=== PATIENT | female | born 1985 | race American Indian/Alaskan Native ===

== ENCOUNTER 2017-05-19 20:08 | Emergency (ER) | payer SELFPAY ==
[2017-05-20] MEDS ORDERED: MOTRIN PO ONE (00:52)
[2017-05-20] MEDS ORDERED: FLEXERIL PO ONE (00:52)
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
[2017-05-20 05:56] VITALS: BP 118/76
== END 2017-05-20 01:59 | disposition home or self-care (01) ==
LOC: ED 20:08
DX: S13.4XXA Sprain of ligaments of cervical spine, initial encounter (principal); F17.200 Nicotine dependence, unspecified, uncomplicated; Z88.8 Allergy status to other drugs, medicaments and biological substances; V89.2XXA Person injured in unspecified motor-vehicle accident, traffic, initial encounter; Y93.89 Activity, other specified; Y92.89 Other specified places as the place of occurrence of the external cause; Y99.8 Other external cause status
CPT/HCPCS: 99282